=== PATIENT | female | born 1935 | race African-American/Black ===

== ENCOUNTER 2023-03-20 04:23 | Emergency (ER) | payer OTHER ==
[~2023-03-20] VITALS: Ht 154.9 cm; Wt 69.0 kg
[2023-03-20 04:27] VITALS: O2SAT 96
[2023-03-20] MEDS ORDERED: TRANEXAMIC ACID 1,000 MG/10 ML TP ONE (04:45)
[2023-03-20 05:34] LABS: HEMATOCRIT 33.8 % (36.0-48.0)
[2023-03-20 05:42] LABS: INR 1.2; PARTIAL THROMBOPLASTIN TIME 60.1 sec (23.4-31.0); PROTHROMBIN TIME 12.9 sec (9.6-11.0)
[2023-03-20] MEDS ORDERED: OXYMETAZOLINE HCL NASAL SPRAY 15ML BOTHNSTRLS SCH (09:00)
[2023-03-20 09:02] VITALS: BP 141/92; PULSE 70; RESP 16; TEMP 97.8
== END 2023-03-20 09:59 | disposition home or self-care (01) ==
LOC: ER 04:23
DX: R04.0 Epistaxis (principal); E78.00 Pure hypercholesterolemia, unspecified; I10 Essential (primary) hypertension; Z98.890 Other specified postprocedural states
CPT/HCPCS: 36415; 85014; 85018; 99283